=== PATIENT | female | born 1985 | race Caucasian/White ===

== ENCOUNTER 2021-10-15 00:40 | Inpatient (IN) | payer BC, SELFPAY ==
[~2021-10-15] VITALS: Ht 157.5 cm; Wt 64.4 kg
[2021-10-15] MEDS ORDERED: PNV1TABL5 PO (00:57)
[2021-10-15] MEDS ORDERED: NALBUPHINE 10 MG/ML AMP IVP PRN (01:10)
[2021-10-15] MEDS ORDERED: LACTATED RINGERS 1,000 ML IV SCH (01:10)
[2021-10-15] MEDS ORDERED: METHYLERGONOVINE 0.2 MG/ML AMP IM PRN ×2 (01:10→09:35)
[2021-10-15] MEDS ORDERED: CARBOPROST 250 MCG/ML AMP IM PRN (01:10)
[2021-10-15] MEDS ORDERED: MORPHINE SULFATE 4 MG/ML SYR IVP PRN (01:10)
[2021-10-15] MEDS ORDERED: PROMETHAZINE 25 MG/ML VIAL IVP PRN (01:10)
[2021-10-15] MEDS ORDERED: OXYTOCIN 10 UNITS/ML VIAL IM SCH (01:10)
[2021-10-15] MEDS ORDERED: TERBUTALINE 1 MG/ML VIAL SUBQ ONE (01:12)
[2021-10-15 02:00] LABS: BASOPHILS # (AUTO) 0.1 K/uL (0.00-0.22); BASOPHILS % (AUTO) 0.7 % (0.0-2.0); EOSINOPHILS # (AUTO) 0.1 K/uL (0-0.4); HEMATOCRIT 37.4 % (36-48); HEMOGLOBIN 12.8 g/dL (12.0-16.0); LYMPHOCYTES # (AUTO) 1.9 K/uL (2.5-16.5); LYMPHOCYTES % (AUTO) 20.7 % (20.5-51.1); MEAN CORPUSCULAR HEMOGLOBIN 29 pg (27-31); MEAN CORPUSCULAR HGB CONC 34 g/dL (33-37); MEAN CORPUSCULAR VOLUME 84.2 fL (80-94); MONOCYTES # (AUTO) 0.7 K/uL (0.8-1.0); MONOCYTES % (AUTO) 7.5 % (1.7-9.3); NEUTROPHILS # (AUTO) 6.5 K/uL (1.8-7.7); NEUTROPHILS % (AUTO) 70.1 % (42.2-75.2); PLATELET COUNT (AUTO) 242 K/uL (140-450); RED BLOOD CELL COUNT(AUTO) 4.43 MIL/uL (4.20-5.40); RED CELL DISTRIBUTION WIDTH 14.2 % (11.6-13.7); WHITE BLOOD COUNT (AUTO) 9.3 K/uL (4.8-10.8)
[2021-10-15 02:06] LABS: ANION GAP 14.9 (8-16); CARBON DIOXIDE 19.8 mmol/L (21-32); CREATININE 0.6 mg/dL (0.6-1.3); POTASSIUM 3.7 mmol/L (3.5-5.1); TOTAL BILIRUBIN 0.4 mg/dL (0.0-1.0)
[2021-10-15] MEDS: TERBUTALINE 1 MG/ML VIAL SUBQ SCH ×2 (03:03→05:42)
[2021-10-15 03:51] LABS: BILIRUBIN,URINE NEGATIVE (NEGATIVE); BLOOD, URINE 3+ (NEGATIVE); COLOR,URINE YELLOW (YELLOW); LEUKOCYTE ESTERASE ,URINE NEGATIVE (NEGATIVE); NITRITE, URINE NEGATIVE (NEGATIVE); UGLUCOSE NEGATIVE (NEGATIVE)
[2021-10-15 04:05] LABS: APPEARANCE,URINE SLIGHTLY HAZY (CLEAR)
[2021-10-15 04:07] LABS: WBC,URINE 0-5 /HPF (0-5)
--- NOTE | 2021-10-15 07:06 | NUR ---
PATIENT HAS BEEN SCREENED AND CATEGORIZED LOW NUTRITION RISK. PATIENT WILL BE SEEN WITHIN 7 DAYS OF ADMISSION. 10/22/21 YURI MACKAY MS, RDN
[2021-10-15] MEDS ORDERED: MEPERIDINE 25 MG/ML SYR ONE (07:57)
[2021-10-15] MEDS ORDERED: KETAMINE 500 MG/5 ML VIAL ONE (07:57)
[2021-10-15] MEDS ORDERED: MIDAZOLAM 2 MG/2 ML VIAL ONE (07:58)
[2021-10-15] MEDS ORDERED: fentaNYL citrate 0.05 MG/ML VIAL ONE (07:58)
[2021-10-15] MEDS ORDERED: MORPHINE PRES FREE 5 MG/10 ML AMP IV ONE (07:59)
[2021-10-15] MEDS ORDERED: DEXAMETHASONE 4 MG/ML VIAL ONE (09:25)
[2021-10-15] MEDS ORDERED: OXYTOCIN 20 UNITS in LACTATED RINGERS 1,000 ML IV SCH (09:35)
[2021-10-15] MEDS ORDERED: KETOROLAC 30 MG/ML VIAL IVP PRN (09:35)
[2021-10-15] MEDS ORDERED: TEMAZEPAM 15 MG CAP PO PRN (09:35)
[2021-10-15] MEDS ORDERED: oxyCODONE/APAP 5/325 MG 1 TAB TAB PO PRN (09:35)
[2021-10-15] MEDS ORDERED: diphenhydrAMINE 50 MG/ML VIAL ONE (10:20)
[2021-10-15] MEDS ORDERED: ONDANSETRON 4 MG/2 ML VIAL ONE (10:20)
[2021-10-15] MEDS: OXYTOCIN 20 UNITS/LR PREMIX 1,000 ML IV ONE ×2 (10:50→11:18)
[2021-10-15] MEDS: DOCUSATE SOD/SENNA 50/8.6 MG 1 TAB PO SCH (21:00)
[2021-10-16] MEDS ORDERED: OXYTOCIN 20 UNITS/LR PREMIX 1,000 ML IV ONE (01:38)
[2021-10-16 05:57] LABS: BASOPHILS # (AUTO) 0.1 K/uL (0.00-0.22); BASOPHILS % (AUTO) 0.6 % (0.0-2.0); EOSINOPHILS % (AUTO) 0.3 % (0.0-4.0); HEMATOCRIT 30.7 % (36-48); HEMOGLOBIN 10.6 g/dL (12.0-16.0); LYMPHOCYTES # (AUTO) 1.6 K/uL (2.5-16.5); LYMPHOCYTES % (AUTO) 11.8 % (20.5-51.1); MEAN CORPUSCULAR HEMOGLOBIN 29 pg (27-31); MEAN CORPUSCULAR HGB CONC 35 g/dL (33-37); MEAN CORPUSCULAR VOLUME 84.3 fL (80-94); MONOCYTES # (AUTO) 0.9 K/uL (0.8-1.0); NEUTROPHILS # (AUTO) 10.7 K/uL (1.8-7.7); NEUTROPHILS % (AUTO) 80.3 % (42.2-75.2); PLATELET COUNT (AUTO) 209 K/uL (140-450); RED BLOOD CELL COUNT(AUTO) 3.65 MIL/uL (4.20-5.40); RED CELL DISTRIBUTION WIDTH 14.4 % (11.6-13.7); WHITE BLOOD COUNT (AUTO) 13.4 K/uL (4.8-10.8)
[2021-10-16] MEDS: SIMETHICONE 80 MG TAB.CHEW PO PRN (09:12)
[2021-10-16] MEDS: IBUPROFEN 800 MG TAB PO PRN ×2 (09:16→19:49)
[2021-10-16] MEDS: oxyCODONE/APAP 5/325 MG 1 TAB TAB PO PRN ×2 (16:53→23:45)
[2021-10-16] MEDS: DOCUSATE SOD/SENNA 50/8.6 MG 1 TAB PO SCH (21:44)
[2021-10-17] MEDS ORDERED: CAMERA MC ONE (03:40)
[2021-10-17] MEDS: IBUPROFEN 800 MG TAB PO PRN (05:36)
[2021-10-17] MEDS: SIMETHICONE 80 MG TAB.CHEW PO PRN (09:22)
== END 2021-10-17 10:27 | disposition home or self-care (01) | DRG 788 ==
LOC: MLD 00:40 → OBSVTOIN 01:05 → MFCC 14:06
PROVIDERS: ADMIT Obstetrics & Gynecology; ATTEND Obstetrics & Gynecology
PROC: 10D00Z1 Extraction of Products of Conception, Low, Open Approach (ICD-10-PCS; principal; 2021-10-15 08:30)
DX: O34.211 Maternal care for low transverse scar from previous cesarean delivery (principal); Z20.822 Contact with and (suspected) exposure to COVID-19; Z3A.37 37 weeks gestation of pregnancy; Z37.0 Single live birth
CPT/HCPCS: 36415; 51702; 80053; 81001; 85025; 86592; 86886; 86900; 86901; 90715; J0690; J1100; J1200; J2175; J2210; J2250; J2405; J2590; J3010; J3105; J7060; J7120